=== PATIENT | male | born 1950 | race Two or more races ===

== ENCOUNTER 2025-11-07 23:31 | Emergency (ER) | payer OTHER ==
[~2025-11-07] VITALS: Ht 180.3 cm; Wt 99.8 kg
[2025-11-08] MEDS ORDERED: ASPIRIN 81 MG TAB.CHEW PO STA (00:36)
[2025-11-08 02:26] LABS: BASO % 0.5 % (0.1-1.2); EOS # 0.13 (0.04-0.54); EOS % 1.4 % (0.7-7.0); LYMPH # 1.65 (1.18-3.74); LYMPH % 17.3 % (19.3-53.1); MEAN PLATELET VOLUME 9.50 fl (9.4-12.4); MONO # 0.94 (0.24-0.82); MONO % 9.9 % (4.7-12.5); NEUT # 6.73 (1.56-6.13); NEUT % 70.6 % (34.0-71.1); RED CELL DISTRIBUTION WIDTH 14.9 % (11.6-14.4)
[2025-11-08 02:27] LABS: URINE APPEARANCE Clear; URINE BILIRRUBIN Negative (NEGATIVE); URINE BLOOD Negative; URINE COLOR Yellow; URINE GLUCOSE Negative (NEGATIVE); URINE KETONE Negative (NEGATIVE); URINE LEUKOCYTE Negative; URINE NITRATE Negative; URINE PROTEIN Negative (NEGATIVE); URINE UROBILINOGEN 0.2 E.U./dl
[2025-11-08 02:51] LABS: URINE BACTERIA 2.2 uL (0.0-1933); URINE CAST 0.00 uL (0.0-1.40); URINE EPITHELIAL CELLS 0.0 uL (0.0-38.8); URINE RBC 0.5 uL (0.0-20.8); URINE WBC 0.7 uL (0.0-23.2)
[2025-11-08 02:57] LABS: BUN CREA RATIO 13.0 (7.0-25.0); CREATININE SERUM 0.91 mg/dL (0.70-1.30); GFR 81.67; GLUCOSE FASTING 103.0 mg/dL (65-100); OSMOLALITY SERUM 278.0 MOSM/KG (275-295)
== END 2025-11-08 05:10 | disposition home or self-care (01) ==
LOC: ER 23:31
PROVIDERS: General Practice
DX: I10 Essential (primary) hypertension (principal); F41.8 Other specified anxiety disorders